=== PATIENT | male | born 1955 | race Caucasian/White ===

== ENCOUNTER → 2016-10-27 | Outpatient (CLI) | payer BC ==
[2015-09-04 10:05] VITALS: BP 133/84
--- NOTE | 2016-10-27 16:54 | MRI ---
HISTORY: Cervicalgia. Study: MRI cervical spine without contrast. Comparison: Cervical spine series dated June 21, 2015 and MRI cervical spine dated December. Technique: Multiplanar multisequence MRI of the cervical spine was obtained utilizing standard depar tmental protocol. Findings: Anatomic alignment without fracture or listhesis. The visualized posterior fossa appears normal. No cerebellar tonsillar ectopia. Multilevel disc desiccation with moderate disc height loss at C5-C6. A ssociated type 2 Modic endplate changes. Remaining bone marrow signal appears normal. The visualized spinal cord demonstrates normal course, caliber, and signal characteristics. The prevertebral soft tissues appear normal. C2 -- C3: No significant disc bulge, neural foraminal narrowing, or spinal canal stenosis. C3 -- C4: No significant disc bulge, neural foraminal narrowing, or spinal canal stenosis. C4 -- C5: Broad-based disc bulge with associated uncovertebral hypertrophy causing moderate bilatera l neural foraminal narrowing and spinal canal stenosis to 10 mm. C5 -- C6: Broad-based disc bulge with associated uncovertebral hypertrophy causing moderate to sever e bilateral neural foraminal narrowing and spinal canal stenosis to 9 mm. C6 -- C7: Broad-based disk bulge with associated uncovertebral hypertrophy causing moderate right an d mild left neural foraminal narrowing. Spinal canal stenosis to 10 mm. Posterior annular tear. C7 -- T1: No significant disc bulge, neural foraminal narrowing, or spinal canal stenosis. IMPRESSION: Multilevel degenerative changes of the cervical spine, which are worse at C4 through C7 with broad-based disc bulges and uncovertebral hypertrophy causing moderate to severe neural foramin al narrowing and spinal canal stenosis to 9 mm. This appears worse from prior comparison. Reported By:
== END | disposition home or self-care (01) ==
LOC: RAD 14:58
PROVIDERS: ATTEND Internal Medicine
DX: M50.221 Other cervical disc displacement at C4-C5 level (principal); M50.222 Other cervical disc displacement at C5-C6 level; M50.223 Other cervical disc displacement at C6-C7 level
CPT/HCPCS: 72141

== ENCOUNTER → 2016-11-17 | Outpatient (CLI) | payer BC ==
[2015-09-04 10:05] VITALS: BP 133/84
[2016-11-17 07:43] LABS: BASOPHILS # (AUTO) 0.1 X10^3/uL (0.0-0.1); BASOPHILS % (AUTO) 1.2 % (0.2-1.0); EOSINOPHILS # (AUTO) 0.1 x10^3/uL (0.0-0.2); EOSINOPHILS % (AUTO) 2.3 % (0.9-2.9); HEMATOCRIT 46.2 % (42.0-54.0); HEMOGLOBIN 16.2 g/dL (13.5-18.0); LYMPHOCYTES # (AUTO) 2.5 X10^3/uL (1.3-2.9); LYMPHOCYTES % (AUTO) 38.6 % (21.0-51.0); MEAN CORPUSCULAR HEMOGLOBIN 31.8 pg (27.0-34.0); MEAN CORPUSCULAR VOLUME 90.8 fL (80.0-100.0); MEAN PLATELET VOLUME 8.5 fL (7.4-11.0); MONOCYTES # (AUTO) 0.6 x10^3/uL (0.3-0.8); MONOCYTES % (AUTO) 8.6 % (0.0-13.0); NEUTROPHILS # (AUTO) 3.2 x10^3/uL (2.2-4.8); NEUTROPHILS % (AUTO) 49.3 % (42.0-75.0); PLATELET COUNT 193 X10^3/uL (150.0-450.0); RED BLOOD COUNT 5.09 X10^6/uL (4.7-6.0); RED CELL DISTRIBUTION WIDTH 12.8 % (11.6-16.5); WHITE BLOOD COUNT 6.5 X10^3/uL (3.6-10.0)
[2016-11-17 07:52] LABS: BILIRUBIN,URINE NEGATIVE (NEGATIVE); BLOOD/HEMOGLOBIN,URINE 3+ (NEGATIVE); GLUCOSE, URINE NEGATIVE (NEGATIVE); KETONES,URINE NEGATIVE (NEGATIVE); LEUKOCYTE ESTERASE ,URINE NEGATIVE (NEGATIVE); NITRITES,URINE NEGATIVE (NEGATIVE); PROTEIN,URINE NEGATIVE (NEGATIVE); UROBILINOGEN,URINE NORMAL (NORMAL)
[2016-11-17 07:57] LABS: BLOOD UREA NITROGEN 18 mg/dL (7-18); CALCIUM 8.7 mg/dL (8.5-10.1); CARBON DIOXIDE 30.8 mmol/L (21-32); CHLORIDE 105 mmol/L (98-107); COR NA(FOR HYPERGLY) 141 mmol/L (136-145); CREATININE 1.03 mg/dL (0.70-1.30); GLUCOSE 114 mg/dL (65-99); SODIUM 141 mmol/L (136-145); eGFR BLACK RACES > 60 (>60); eGFR NON BLACK RACES > 60 (>60)
[2016-11-17 07:59] LABS: APPEARANCE,URINE CLEAR (CLEAR); BACTERIA,URINE NEGATIVE /HPF (NEGATIVE); COLOR,URINE YELLOW (YELLOW); SQUAMOUS EPITHELIAL CELL,UR RARE /HPF (NEGATIVE)
[2016-11-17 08:00] LABS: AMORPHOUS SEDIMENT,UR TRACE /HPF (NEGATIVE)
== END | disposition home or self-care (01) | DRG 951 ==
LOC: LAB 07:11
PROVIDERS: ATTEND Neurological Surgery
DX: Z01.812 Encounter for preprocedural laboratory examination (principal); Z79.01 Long term (current) use of anticoagulants; M47.812 Spondylosis without myelopathy or radiculopathy, cervical region; M48.02 Spinal stenosis, cervical region
CPT/HCPCS: 36415; 80048; 81001; 85025; 85610; 85730; 93005; 93010

== ENCOUNTER 2018-08-07 14:46 | Observation (INO) ==
[2018-08-07] MEDS ORDERED: NS 1000 ML 1,000 ML IV ONE (15:45)
[2018-08-07 16:28] LABS: BASOPHILS # (AUTO) 0.1 X10^3/uL (0.0-0.1); BASOPHILS % (AUTO) 0.5 % (0.2-1.0); EOSINOPHILS % (AUTO) 0.1 % (0.9-2.9); HEMATOCRIT 45.4 % (42.0-54.0); HEMOGLOBIN 15.4 g/dL (13.5-18.0); LYMPHOCYTES # (AUTO) 0.9 X10^3/uL (1.3-2.9); LYMPHOCYTES % (AUTO) 8.7 % (21.0-51.0); MEAN CORPUSCULAR HEMOGLOBIN 31.4 pg (27.0-34.0); MEAN CORPUSCULAR HGB CONC 33.9 g/dL (33.0-35.0); MEAN CORPUSCULAR VOLUME 92.9 fL (80.0-100.0); MONOCYTES # (AUTO) 0.6 x10^3/uL (0.3-0.8); NEUTROPHILS # (AUTO) 8.8 x10^3/uL (2.2-4.8); NEUTROPHILS % (AUTO) 84.7 % (42.0-75.0); PLATELET COUNT 189 X10^3/uL (150.0-450.0); RED BLOOD COUNT 4.89 X10^6/uL (4.7-6.0); RED CELL DISTRIBUTION WIDTH 12.6 % (11.6-16.5); WHITE BLOOD COUNT 10.4 X10^3/uL (3.6-10.0)
[2018-08-07 16:37] LABS: ALANINE AMINOTRANSFERASE 86 Units/L (12-78); ALBUMIN 3.2 g/dL (3.4-5.0); ALKALINE PHOSPHATASE 128 Units/L (46-116); AMYLASE 19 Units/L (25-115); ASPARTATE AMINO TRANSFERASE 46 Units/L (15-37); BLOOD UREA NITROGEN 22 mg/dL (7-18); CALCIUM 9.3 mg/dL (8.5-10.1); CHLORIDE 94 mmol/L (98-107); COR CA(FOR HYPOALB) 9.9 mg/dL (8.5-10.1); COR NA(FOR HYPERGLY) 135 mmol/L (136-145); CREATININE 1.25 mg/dL (0.70-1.30); LIPASE 50 Units/L (73-393); SODIUM 134 mmol/L (136-145); TOTAL PROTEIN 7.3 g/dL (6.4-8.2); eGFR NON BLACK RACES > 60 (>60)
[2018-08-07 16:57] VITALS: BMI 34.0
[2018-08-07] MEDS ORDERED: TYLENOL 325 MG TAB PO ONE (16:57)
[2018-08-07] MEDS ORDERED: K-RIDER 10 MEQ/NS 100 ML 10 MEQ/100 ML BAG IV PRN (16:59)
[2018-08-07] MEDS ORDERED: POTASSIUM CHLORIDE LIQ 20 MEQ UDC PO PRN (16:59)
[2018-08-07] MEDS ORDERED: KLOR-CON PO PRN (16:59)
[2018-08-07] MEDS ORDERED: POTASSIUM CHL 40 MEQ/NS 0.45% 500 ML IV PRN (16:59)
[2018-08-07] MEDS ORDERED: POTASSIUM CHL 60 MEQ/NS 0.45% 500 ML IV PRN (16:59)
[2018-08-07] MEDS ORDERED: K-DUR TAB 20 MEQ PO PRN (16:59)
[2018-08-07] MEDS ORDERED: MICRO K EXTEN CAP 10 MEQ PO PRN (16:59)
[2018-08-07] MEDS: NS 1000 ML 1,000 ML IV SCH (17:28)
[2018-08-07] MEDS ORDERED: ZOFRAN INJ 4 MG VIAL 16 MG, ATIVAN INJ 2 MG VIAL 1 MG, DECADRON INJ 10 MG in NS 50 ML I... IV ONE (17:40)
[2018-08-07] MEDS ORDERED: ZOFRAN INJ 4 MG VIAL IVP PRN (17:41)
[2018-08-07] MEDS ORDERED: DECADRON INJ PRESERVATIVE-FREE IM ONE (17:48)
[2018-08-07] MEDS ORDERED: ZOFRAN INJ 4 MG VIAL ONE (17:49)
[2018-08-07] MEDS ORDERED: NS 50 ML IV 50 ML ONE (17:49)
[2018-08-07] MEDS ORDERED: ATIVAN INJ 2 MG VIAL ONE (17:50)
[2018-08-07 18:12] LABS: CREATINE KINASE MB < 1.0 ng/mL (0-4.0); TOTAL PROTEIN 7.4 g/dL (6.4-8.2); TROPONIN I < 0.02 ng/mL (0-1.5)
[2018-08-07 19:06] LABS: ALANINE AMINOTRANSFERASE 88 Units/L (12-78); ALBUMIN 3.3 g/dL (3.4-5.0); ALKALINE PHOSPHATASE 131 Units/L (46-116); ASPARTATE AMINO TRANSFERASE 50 Units/L (15-37); CKMB % 1.7 % (<4); CREATINE KINASE 60 Units/L (39-308)
[2018-08-07] MEDS: TYLENOL 325 MG TAB PO SCH ×2 (19:14→22:51)
[2018-08-07 19:23] LABS: BILIRUBIN,URINE NEGATIVE (NEGATIVE); BLOOD/HEMOGLOBIN,URINE 4+ (NEGATIVE); GLUCOSE, URINE NEGATIVE (NEGATIVE); KETONES,URINE 2+ (NEGATIVE); LEUKOCYTE ESTERASE ,URINE NEGATIVE (NEGATIVE); NITRITES,URINE NEGATIVE (NEGATIVE); PROTEIN,URINE 3+ (NEGATIVE); UROBILINOGEN,URINE 1+ (NORMAL)
[2018-08-07 19:30] LABS: APPEARANCE,URINE SLIGHTLY HAZY (CLEAR); COLOR,URINE DARK YELLOW (YELLOW)
[2018-08-07 19:31] LABS: AMORPHOUS SEDIMENT,UR 1+ /HPF (NEGATIVE); BACTERIA,URINE TRACE /HPF (NEGATIVE); MUCUS,URINE FEW /HPF (NEGATIVE); SQUAMOUS EPITHELIAL CELL,UR FEW /HPF (NEGATIVE)
[2018-08-07] MEDS: TORADOL 30 MG VIAL IVP SCH (19:38)
[2018-08-07] MEDS: PROTONIX INJ 40 MG VIAL IVP SCH ×2 (19:38→21:09)
[2018-08-07] MEDS: PEPCID 20 MG IV PREMIX* 20 MG/50 ML BAG IV SCH ×2 (19:46→21:09)
[2018-08-07] MEDS: BENTYL CAP 10 MG PO SCH (21:37)
[2018-08-07] MEDS: FLOMAX PO SCH (21:38)
[2018-08-07] MEDS: MAGNESIUM SULFATE 1 GRAM/100 mL PREMIX 1 GM/100 ML BAG IV PRN ×2 (21:43→22:51)
[2018-08-08] MEDS: NS 1000 ML 1,000 ML IV SCH ×4 (00:30→19:30)
[2018-08-08] MEDS: TORADOL 30 MG VIAL IVP SCH ×5 (00:31→18:02)
[2018-08-08] MEDS: TYLENOL 325 MG TAB PO SCH ×5 (02:08→20:00)
[2018-08-08 05:50] LABS: BASOPHILS % (AUTO) 0.1 % (0.2-1.0); HEMATOCRIT 41.6 % (42.0-54.0); HEMOGLOBIN 14.1 g/dL (13.5-18.0); LYMPHOCYTES # (AUTO) 0.6 X10^3/uL (1.3-2.9); LYMPHOCYTES % (AUTO) 5.7 % (21.0-51.0); MEAN CORPUSCULAR HEMOGLOBIN 31.5 pg (27.0-34.0); MEAN CORPUSCULAR HGB CONC 33.8 g/dL (33.0-35.0); MEAN CORPUSCULAR VOLUME 93.3 fL (80.0-100.0); MEAN PLATELET VOLUME 8.6 fL (7.4-11.0); MONOCYTES # (AUTO) 0.3 x10^3/uL (0.3-0.8); MONOCYTES % (AUTO) 3.2 % (0.0-13.0); NEUTROPHILS # (AUTO) 9.3 x10^3/uL (2.2-4.8); PLATELET COUNT 188 X10^3/uL (150.0-450.0); RED BLOOD COUNT 4.46 X10^6/uL (4.7-6.0); RED CELL DISTRIBUTION WIDTH 12.8 % (11.6-16.5); WHITE BLOOD COUNT 10.3 X10^3/uL (3.6-10.0)
[2018-08-08 06:00] LABS: ALANINE AMINOTRANSFERASE 71 Units/L (12-78); ALBUMIN 2.6 g/dL (3.4-5.0); ALKALINE PHOSPHATASE 111 Units/L (46-116); ASPARTATE AMINO TRANSFERASE 27 Units/L (15-37); BLOOD UREA NITROGEN 24 mg/dL (7-18); CALCIUM 8.8 mg/dL (8.5-10.1); CARBON DIOXIDE 27.9 mmol/L (21-32); CHLORIDE 102 mmol/L (98-107); COR CA(FOR HYPOALB) 9.9 mg/dL (8.5-10.1); COR NA(FOR HYPERGLY) 137 mmol/L (136-145); CREATININE 0.94 mg/dL (0.70-1.30); MAGNESIUM 2.5 mg/dL (1.7-2.9); SODIUM 136 mmol/L (136-145); TOTAL PROTEIN 6.3 g/dL (6.4-8.2); eGFR NON BLACK RACES > 60 (>60)
[2018-08-08 06:01] LABS: BAND NEUTROPHILS % 10 % (0-10); PLATELET MORPHOLOGY COMMENT NORMAL (NORMAL)
[2018-08-08 06:43] LABS: ERYTHROCYTE SEDIMENTATION RATE 33 MM/HOUR (0-15)
--- NOTE | 2018-08-08 07:44 | RAD ---
History: Abdominal pain Study: KUB Comparison: CT abdomen dated June 19 Findings: The bowel gas pattern is unremarkable. There are cholecystectomy clips. No abnormal soft tissue calcification is demonstrated. No significant bony abnormality is demonstrated. Impression: No acute disease Reported By:
[2018-08-08] MEDS: PEPCID 20 MG IV PREMIX* 20 MG/50 ML BAG IV SCH ×2 (08:24→21:11)
[2018-08-08] MEDS: PROTONIX INJ 40 MG VIAL IVP SCH ×2 (08:25→21:11)
[2018-08-08] MEDS: HYDROCHLOROTHIAZIDE 12.5 MG CAP PO SCH (08:25)
[2018-08-08] MEDS: BENTYL CAP 10 MG PO SCH ×4 (08:25→21:11)
[2018-08-08] MEDS: TOPROL XL PO SCH (08:25)
--- NOTE | 2018-08-08 08:56 | DR.UPDATE ---
H&P Update History and Physical Update: WAS SEEN IN THE OFFICE TODAY FOR COMPLAINTS OF SEVERE ABDOMINAL PAIN AND CRAMPING, FEVER, CHILLS, AND NAUSEA/VOMITING. HE WAS ADMITTED FOR FURTHER EVALUATION AND TREATMENT. A H&P WAS COMPLETED PRIOR TO ADMISSION. WE PLAN TO OBTAIN LABS, KUB, AND ADMINISTER IV FLUIDS. PATIENT HAS BEEN SEEN AND EXAMINED WITH NO CHANGES NOTED TO H&P. Changes noted: NO
[2018-08-08] MEDS ORDERED: NS 1000 ML 1,000 ML IV ONE (10:14)
[2018-08-08 12:24] LABS: STOOL FOR WBC NEGATIVE (NEGATIVE)
[2018-08-08 12:26] LABS: CRYPTOSPORIDIUM PARVUM ANTIGEN NEGATIVE (NEGATIVE); GIARDIA LAMBLIA ANTIGEN NEGATIVE (NEGATIVE)
--- NOTE | 2018-08-08 12:46 | CT ---
CT OF THE ABDOMEN AND PELVIS WITH CONTRAST HISTORY: Abdominal pain with nausea and vomiting and fever. Comparison: 06/19/2018 Technique: Multiple axial images of the abdomen and pelvis were obtained from the lung bases to the pubic symphysis follow the administration of IV contrast as well as oral contrast. Dose reduction techniques including Automated Exposure Control (AEC) and adjustment of mA and kV were utlized. Findings: The heart is normal in size. There is no pericardial effusion. Lung bases are clear without focal consolidation, pleural effusion or pneumothorax. Liver and spleen are normal in size, enhancement characteristics and contour. There is a lobular and ill-defined right liver lesion measuring 5.2 x 4.5 cm on series 4, image 25 which was not clearly seen on prior noncontrast examination is. There is a tubular hypoattenuating structure leading to this lesion which may represent a thrombosed right hepatic vein branch. The portal vein is patent. No ductal dilitation. Gallbladder absent. The pancreas is unremarkable. Adrenal glands are normal. Kidneys enhance symmetrically without hydronephrosis or nephrolithiasis. No bowel obstruction or inflammation. Normal appendix. No abnormal appearing mesenteric or retroperitoneal lymph nodes. No free fluid or fluid collections. The bladder is normal in appearance. Prostate enlarged measuring 6.0 cm. No free fluid or abnormal pelvic lymph nodes. No aggressive osseous lesions. IMPRESSION: 1. Hypoenhancing hepatic mass as above which appears to be new in a short interval since 06/19/2018. Given the short interval and the history of abdominal pain with fever, a hepatic abscess would be the primary differential consideration. Additionally there appears to be what is likely a thrombosed hepatic vein leading to this lesion. Correlate with patient's symptoms. Malignancy cannot be completely excluded by this appearance however would be unlikely for malignancy to appearance such as short time. Reported By:
[2018-08-08] MEDS ORDERED: ZOSYN VIAL 4.5 GRAMS IV SCH (14:00)
[2018-08-08] MEDS: ZOSYN VIAL 4.5 GRAMS 4.5 G in NS 100 ML IV + SPIKE MINIBAG* 100 ML IV SCH ×2 (14:00→21:11)
[2018-08-08] MEDS ORDERED: TYLENOL 325 MG TAB PO ONE (20:05)
[2018-08-08] MEDS: FLOMAX PO SCH (21:11)
[2018-08-08] MEDS ORDERED: TYLENOL 325 MG TAB PO PRN (23:10)
[2018-08-08] MEDS ORDERED: TORADOL 30 MG VIAL ONE (23:16)
[2018-08-08] MEDS ORDERED: OFIRMEV IV 1000 MG VIAL 750 MG/75 ML VIAL IV PRN (23:19)
[2018-08-08] MEDS: TORADOL 30 MG VIAL IVP PRN (23:24)
[2018-08-09] MEDS: NS 1000 ML 1,000 ML IV SCH ×3 (01:05→11:47)
[2018-08-09 05:34] LABS: BASOPHILS % (AUTO) 0.2 % (0.2-1.0); EOSINOPHILS % (AUTO) 0.2 % (0.9-2.9); HEMATOCRIT 35.5 % (42.0-54.0); LYMPHOCYTES # (AUTO) 0.7 X10^3/uL (1.3-2.9); LYMPHOCYTES % (AUTO) 3.3 % (21.0-51.0); MEAN CORPUSCULAR HEMOGLOBIN 31.6 pg (27.0-34.0); MEAN PLATELET VOLUME 9.1 fL (7.4-11.0); MONOCYTES # (AUTO) 1.3 x10^3/uL (0.3-0.8); MONOCYTES % (AUTO) 6.1 % (0.0-13.0); NEUTROPHILS % (AUTO) 90.2 % (42.0-75.0); PLATELET COUNT 162 X10^3/uL (150.0-450.0); RED BLOOD COUNT 3.82 X10^6/uL (4.7-6.0); RED CELL DISTRIBUTION WIDTH 12.9 % (11.6-16.5)
[2018-08-09 05:47] LABS: ALANINE AMINOTRANSFERASE 45 Units/L (12-78); ALBUMIN 2.1 g/dL (3.4-5.0); ALKALINE PHOSPHATASE 88 Units/L (46-116); ASPARTATE AMINO TRANSFERASE 18 Units/L (15-37); BLOOD UREA NITROGEN 21 mg/dL (7-18); CALCIUM 7.8 mg/dL (8.5-10.1); CHLORIDE 105 mmol/L (98-107); COR CA(FOR HYPOALB) 9.3 mg/dL (8.5-10.1); COR NA(FOR HYPERGLY) 138 mmol/L (136-145); CREATININE 0.91 mg/dL (0.70-1.30); SODIUM 137 mmol/L (136-145); eGFR NON BLACK RACES > 60 (>60)
[2018-08-09 06:09] LABS: HEMOGLOBIN 12.1 g/dL (13.5-18.0); WHITE BLOOD COUNT 21.1 X10^3/uL (3.6-10.0)
[2018-08-09 06:10] LABS: BAND NEUTROPHILS % 6 % (0-10); PLATELET MORPHOLOGY COMMENT NORMAL (NORMAL)
[2018-08-09] MEDS: ZOSYN VIAL 4.5 GRAMS 4.5 G in NS 100 ML IV + SPIKE MINIBAG* 100 ML IV SCH ×2 (06:25→16:14)
[2018-08-09] MEDS ORDERED: NS 100 ML IV 100 ML ONE ×2 (08:29→15:55)
[2018-08-09] MEDS ORDERED: LEVAQUIN PREMIX IV 750 MG 750 MG/150 ML BAG IV SCH (10:00)
[2018-08-09] MEDS: BENTYL CAP 10 MG PO SCH ×3 (11:19→16:27)
[2018-08-09] MEDS: TOPROL XL PO SCH (11:19)
[2018-08-09] MEDS: HYDROCHLOROTHIAZIDE 12.5 MG CAP PO SCH (11:19)
[2018-08-09] MEDS: PROTONIX INJ 40 MG VIAL IVP SCH (11:38)
[2018-08-09] MEDS: TORADOL 30 MG VIAL IVP PRN (11:38)
[2018-08-09] MEDS ORDERED: XANAX PO PRN (11:38)
[2018-08-09] MEDS ORDERED: XANAX ONE (11:39)
[2018-08-09] MEDS: PEPCID 20 MG IV PREMIX* 20 MG/50 ML BAG IV SCH (11:44)
--- NOTE | 2018-08-09 12:42 | MRI ---
MRI OF THE ABDOMEN WITHOUT AND WITH IV CONTRAST Clinical indication: Liver lesion Procedure: Multiplanar multi sequence MRI of the abdomen were obtained with and without the administration of intravenous contrast according to standard departmental protocol. Contrast: 20 cc of MultiHance. Comparisons: 08/08/2018, 06/19/2018, 09/23/2015 Findings: MRI of the abdomen without contrast: No significant iron or fat deposition in the liver or spleen. No significant ascites. MRI of the abdomen with contrast: Redemonstrated within the right liver is a 4.7 x 4.2 cm mass which demonstrates some mild intrinsic T2 signal and is low signal on T1. There is some heterogeneity with nodularity and septal enhancement. Additionally again noted is a hepatic vein thrombus that does not appear to demonstrate significant enhancement. Gallbladder not seen. No filling defects within the common bile duct. No ductal dilatation. Pancreas demonstrates normal T1 signal. No pancreatic masses. Adrenal glands are normal. Kidneys demonstrate normal cortical medullary differentiation. No hydronephrosis. Visualized bowel is unremarkable. No suspicious lymph nodes. Impression: 1. Mass lesion in the right liver again most consistent with a hepatic abscess and hepatic vein thrombosis. Correlate with symptoms of infection. If patient does not have infectious symptoms, then malignancy such as biliary cystadenocarcinoma cannot be excluded in this may require biopsy. This is thought to be less likely given its somewhat rapid appearance since 06/19/2018. Reported By:
[2018-08-09] MEDS ORDERED: FLAGYL IV PREMIX 500 MG BAG 500 MG/100 ML BAG IV SCH (14:00)
[2018-08-09] MEDS ORDERED: ZOFRAN INJ 4 MG VIAL 16 MG, ATIVAN INJ 2 MG VIAL 1 MG, DECADRON INJ 10 MG in NS 50 ML I... IV ONE (15:54)
[2018-08-09] MEDS ORDERED: DECADRON INJ PRESERVATIVE-FREE IM ONE (15:55)
[2018-08-09] MEDS ORDERED: ATIVAN INJ 2 MG VIAL ONE (15:56)
[2018-08-09] MEDS ORDERED: MORPHINE SULFATE INJ 2 MG INJ ONE (16:06)
[2018-08-09] MEDS ORDERED: MORPHINE SULFATE INJ 2 MG INJ IVP ONE (16:06)
[2018-08-09 16:42] VITALS: BP 134/71
[2018-08-10 15:46] LABS: HEPATITIS A ANTIBODY IGM Negative (Negative)
[2018-08-10 16:02] LABS: HEPATITIS B CORE IGM Negative (Negative); HEPATITIS B SURFACE ANTIGEN Negative (Negative)
--- NOTE | 2018-08-25 08:25 | PCM.PROG ---
Progress Note - Progress Note for Day of Date of Exam: 08/08/18 - Subjective Subjective: WAS ADMITTED FOR ABDOMINAL PAIN, CRAMPING, FEVER, CHILLS, AND NAUSEA AND VOMITING. TODAY, HE IS ALERT AND ORIENTED, LYING IN BED ON MORNING ROUNDS. HE CONTINUES WITH COMPLAINTS OF NAUSEA AND ABDOMINAL PAIN THIS MORNING. HE WAS ALSO FEBRILE THROUGHOUT THE NIGHT. ON EXAMINATION, HEART IS REGULAR IN RATE AND RHYTHM. BILATERAL LUNGS ARE NOTED WITH DIMINISHED LUNG SOUNDS THROUGHOUT. ABDOMEN IS ROUND, SOFT, AND NOTED WITH DIFFUSE TENDERNESS TO PALPATION. HIS VITALS THIS MORNING ARE 97.6-71-20-97%-105/66. LABS WERE OBTAINED. ABNORMAL LAB VALUES INCLUDE THE FOLLOWING: WBC 10.3, RBC 4.46, HCT 41.6, BUN 24, GLUCOSE 157, CRP 223.60, TOTAL PROTEIN 6.3, ALBUMIN 2.6. WE OBTAINED AN ABDOMEN/PELVIS CT WITH CONTRAST THIS MORNING. IT REVEALED: Hypoenhancing hepatic mass as above which appears to be new in a short interval since 06/19/2018. Given the short interval and the history of abdominal pain with fever, a hepatic abscess would be the primary differential consideration. Additionally there appears to be what is likely a thrombosed hepatic vein leading to this lesion. Correlate with patient's symptoms. Malignancy cannot be completely excluded by this appearance however would be unlikely for malignancy to appearance such as short time. WE WILL BOLUS HIM WITH 1 LITER OF IV FLUIDS THIS MORNING AND OBTAIN AN ABDOMEN MRI IN THE MORNING. WE WILL START IV ZOSYN TODAY. OTHERWISE, WE PLAN TO FOLLOW-UP WITH AM LABS AND CONTINUE TO MONITOR. - Past Medical Family Social History Past Med/Fam/Surg Hx: No changes since H&P Allergies: Allergies No Known Drug Allergies Allergy (Verified 08/07/18 16:57) - Review of Systems ROS: No change since H&P - Vital Signs and I&O's Vital Signs: Temperature 98.8 F Pulse Rate [Right Brachial] 112 Respiratory Rate 20 Blood Pressure [Right Arm] 134/71 Blood Pressure [Left Arm] 140/95 Blood Pressure 140/95 O2 Sat by Pulse Oximetry 92 - Physical Exam Oriented: Normal Eyes: Normal Ear: Normal Nose: Normal Throat: Normal Respiratory: Diminished Cardiovascular: Normal. negative: S3, S4, Murmur : Normal Auscultation: Bowel Sounds: Normal Palpation: Normal Tenderness: Diffuse, Moderate. negative: Rebound, Guarding, Rigidity Skin: Normal Musculoskeletal: Normal Psychiatric: Normal Mood Description: Calm Affect: Normal Speech Pattern: Clear, Appropriate - Laboratory and Diagnostics Result Diagrams: 08/09/18 05:20 08/09/18 05:20 Labs: 08/07/18 16:14 Blood Blood Culture - Final 08/07/18 16:10 Blood Blood Culture - Final 08/09/18 13:59 Blood Blood Culture - Final 08/09/18 13:54 Blood Blood Culture - Final 08/08/18 11:30 Stool Stool Culture - Final 08/08/18 11:30 Stool - Final Laboratory WBC 21.1 X10^3/uL (3.6-10.0) H D 08/09/18 05:20 RBC 3.82 X10^6/uL (4.7-6.0) L 08/09/18 05:20 Hgb 12.1 g/dL (13.5-18.0) L D 08/09/18 05:20 Hct 35.5 % (42.0-54.0) L 08/09/18 05:20 MCV 93.0 fL (80.0-100.0) 08/09/18 05:20 MCH 31.6 pg (27.0-34.0) 08/09/18 05:20 MCHC 34.0 g/dL (33.0-35.0) 08/09/18 05:20 RDW 12.9 % (11.6-16.5) 08/09/18 05:20 Plt Count 162 X10^3/uL (150.0-450.0) 08/09/18 05:20 Plt Count Comment Adequate (ADEQUATE) 08/09/18 05:20 MPV 9.1 fL (7.4-11.0) 08/09/18 05:20 Neut % (Auto) 90.2 % (42.0-75.0) H 08/09/18 05:20 Lymph % (Auto) 3.3 % (21.0-51.0) L 08/09/18 05:20 [place] % (Auto) 6.1 % (0.0-13.0) 08/09/18 05:20 Eos % (Auto) 0.2 % (0.9-2.9) L 08/09/18 05:20 Baso % (Auto) 0.2 % (0.2-1.0) 08/09/18 05:20 Neut # (Auto) 19.0 x10^3/uL (2.2-4.8) H 08/09/18 05:20 Lymph # (Auto) 0.7 X10^3/uL (1.3-2.9) L 08/09/18 05:20 [place] # (Auto) 1.3 x10^3/uL (0.3-0.8) H 08/09/18 05:20 Eos # (Auto) 0.0 x10^3/uL (0.0-0.2) 08/09/18 05:20 Baso # (Auto) 0.0 X10^3/uL (0.0-0.1) 08/09/18 05:20 Absolute Nucleated RBC 0.0 /100WBC 08/09/18 05:20 Total Counted 100 08/09/18 05:20 Neutrophils % (Manual) 84 % (39-76) H 08/09/18 05:20 Band Neutrophils % 6 % (0-10) 08/09/18 05:20 Lymphocytes % (Manual) 4 % (13-43) L 08/09/18 05:20 Monocytes % (Manual) 6 % (4-9) 08/09/18 05:20 Plt Morphology Comment Normal (NORMAL) 08/09/18 05:20 RBC Morphology Normal (NORMAL) 08/09/18 05:20 ESR 25 MM/HOUR (0-15) H 08/09/18 08:25 Sodium 137 mmol/L (136-145) 08/09/18 05:20 Corrected Sodium 138 mmol/L (136-145) 08/09/18 05:20 Potassium 3.7 mmol/L (3.5-5.1) 08/09/18 05:20 Chloride 105 mmol/L (98-107) 08/09/18 05:20 Carbon Dioxide 24.0 mmol/L (21-32) 08/09/18 05:20 BUN 21 mg/dL (7-18) H 08/09/18 05:20 Creatinine 0.91 mg/dL (0.70-1.30) 08/09/18 05:20 Est GFR (MDRD) Af Amer > 60 (>60) 08/09/18 05:20 Est GFR (MDRD) Non-Af > 60 (>60) 08/09/18 05:20 Glucose 126 mg/dL (65-99) H 08/09/18 05:20 POC Glucose (mg/dL) 151 mg/dL (65-99) H 08/08/18 05:26 Lactic Acid 1.8 mmol/L (0.4-2.0) 08/07/18 17:29 Calcium 7.8 mg/dL (8.5-10.1) L 08/09/18 05:20 Corrected Calcium 9.3 mg/dL (8.5-10.1) 08/09/18 05:20 Magnesium 2.5 mg/dL (1.7-2.9) 08/08/18 05:38 Total Bilirubin 0.60 mg/dL (0.2-1.0) 08/09/18 05:20 Direct Bilirubin 0.40 mg/dL (0-0.2) H 08/07/18 16:10 Indirect Bilirubin 0.80 mg/dL (0.2-0.8) 08/07/18 16:10 AST 18 Units/L (15-37) 08/09/18 05:20 ALT 45 Units/L (12-78) 08/09/18 05:20 Alkaline Phosphatase 88 Units/L (46-116) 08/09/18 05:20 Creatine Kinase 60 Units/L (39-308) 08/07/18 16:10 CK-MB (CK-2) < 1.0 ng/mL (0-4.0) 08/07/18 16:10 CK/CKMB % Calc 1.7 % (<4) 08/07/18 16:10 Troponin I < 0.02 ng/mL (0-1.5) 08/07/18 16:10 C-Reactive Protein 132.90 mg/L (0-3.0) H 08/09/18 08:25 Total Protein 5.0 g/dL (6.4-8.2) L 08/09/18 05:20 Albumin 2.1 g/dL (3.4-5.0) L 08/09/18 05:20 Globulin 2.9 g/dL (2.5-4.5) 08/09/18 05:20 Albumin/Globulin Ratio 0.7 Ratio (1.1-2.1) L 08/09/18 05:20 Amylase 19 Units/L (25-115) L 08/07/18 16:10 Lipase 50 Units/L (73-393) L 08/07/18 16:10 Carcinoembryonic Ag 0.8 ng/mL (0.0-3.0) 08/09/18 08:25 Specimen Type Clean catch urine 08/07/18 19:05 Urine Color Dark yellow (YELLOW) 08/07/18 19:05 Urine Appearance Slightly hazy (CLEAR) 08/07/18 19:05 Urine pH 6.0 (5.0 - 8.0) 08/07/18 19:05 Ur Specific [place] 1.015 (1.000-1.030) 08/07/18 19:05 Urine Protein 3+ (NEGATIVE) 08/07/18 19:05 Urine Glucose (UA) Negative (NEGATIVE) 08/07/18 19: Urine Ketones 2+ (NEGATIVE) 08/07/18 19:05 Urine Occult Blood 4+ (NEGATIVE) 08/07/18 19:05 Urine Nitrite Negative (NEGATIVE) 08/07/18 19: Urine Bilirubin Negative (NEGATIVE) 08/07/18 19:05 Urine Urobilinogen 1+ (NORMAL) 08/07/18 19:05 Ur Leukocyte Esterase Negative (NEGATIVE) 08/07/18 19:05 Urine RBC 10-20 /HPF (NONE SEEN) 08/07/18 19:05 Urine WBC None seen /HPF (NONE SEEN) 08/07/18 19:05 Ur Squamous Epith Cells Few /HPF (NEGATIVE) 08/07/18 19:05 Amorphous Sediment 1+ /HPF (NEGATIVE) 08/07/18 19:05 Urine Bacteria Trace /HPF (NEGATIVE) 08/07/18 19:05 Urine Mucus Few /HPF (NEGATIVE) 08/07/18 19:05 Ur Culture Indicated? No/not indicated 08/07/18 19:05 Stool Description 100 oz yellow/brown 08/08/18 11:30 Stl Occult Blood (IFOB) Negative (NEGATIVE) 08/08/18 11:30 Stool for White Cells Negative (NEGATIVE) 08/08/18 11:30 Stl C. diff Tox B Gene Negative (NEGATIVE) 08/08/18 11:30 Stl C. diff [id number] Negative (NEGATIVE) 08/08/18 11:30 Cryptosporid parvum Ag Negative (NEGATIVE) 08/08/18 11:30 Giardia lamblia Ag Negative (NEGATIVE) 08/08/18 11:30 Hepatitis A IgM Ab Negative (Negative) 08/08/18 05:38 Hep Bs Antigen Negative (Negative) 08/08/18 05:38 Hep Bs Ag Confirmation TNP 08/08/18 05:38 Hep B Core IgM Ab Negative (Negative) 08/08/18 05:38 Hepatitis C Ab Index <0.02 IV 08/08/18 05:38 Hepatitis C Interp Negative (Negative) 08/08/18 05:38 Hepatitis Interpret See note 08/08/18 05:38 - Plan (1) Abdominal pain Status: Acute Qualifiers: Abdominal location: generalized Qualified Code(s): R10.84 - Generalized abdominal pain Plan: OBTAIN ABDOMEN MRI TODAY, PAIN CONTROL, CONTINUE TO MONITOR (2) Hepatic abscess Status: Acute Plan: OBTAIN ABDOMEN MRI, IV ZOSYN, CONTINUE TO MONITOR (3) Nausea & vomiting Status: Acute Qualifiers: Vomiting type: unspecified Vomiting Intractability: unspecified Qualified Code(s): R11.2 - Nausea with vomiting, unspecified Plan: IV PHENERGAN, ZOFRAN COCTAIL, CONTINUE TO MONITOR (4) Fever Status: Acute Qualifiers: Fever type: unspecified Qualified Code(s): R50.9 - Fever, unspecified
== END 2018-08-09 16:35 | disposition home or self-care (01) ==
LOC: MED/SURG
PROVIDERS: ADMIT Internal Medicine; ATTEND Internal Medicine
DX: K76.89 Other specified diseases of liver; R11.2 Nausea with vomiting, unspecified; R94.31 Abnormal electrocardiogram [ECG] [EKG]; R50.9 Fever, unspecified; R73.09 Other abnormal glucose; K75.0 Abscess of liver; R10.84 Generalized abdominal pain; R74.8 Abnormal levels of other serum enzymes; R70.0 Elevated erythrocyte sedimentation rate; R79.82 Elevated C-reactive protein (CRP)
CPT/HCPCS: 36415; 74000; 74018; 74177; 74183; 80053; 80074; 80076; 81001; 82150; 82270; 82378; 82550; 82553; 83605; 83630; 83690; 83735; 84484; 85025; 85652; 86140; 87040; 87045; 87077; 87328; 87329; 87427; 87449; 87493; 87899; 93005; 94760; 96367; 96374; A4216; A4222; C9113; S0028; S0030; G0378; J1100; J1885; J1956; J2060; J2270; J2405; J2543; J3475; J3490; J7030; J7050